=== PATIENT | female | born 1980 | race Caucasian/White ===

== ENCOUNTER 2019-12-10 13:50 | Emergency (ER) | payer OTHER ==
[~2019-12-10] VITALS: Ht 177.8 cm; Wt 54.4 kg
[2019-12-10] MEDS ORDERED: Acetaminophen 500mg (ES) tab ORAL ONE ×2 (14:00→14:19)
[2019-12-10] MEDS ORDERED: NORCO 5-325 TA1 EACH ORAL (14:06)
[2019-12-10] MEDS ORDERED: IBUPROFEN600 MG ORAL (14:07)
--- NOTE | 2019-12-10 14:07 | NUR ---
ED Nurse Note: Pt walked into ED stating that she's had TMJ for over 2 years without relief. Pt describes pain in bilateral jaw aas 07/20. Pt is refusing urine sample,Dr Manuel aware. Pt denies nausea or vomiting. Pt is alert and orientedx4, ambulatory.
--- NOTE | 2019-12-10 14:08 | Emergency Room Report ---
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 also additionally patient is being referred for surgery, she endorses sharp pain aggravated with eating alleviated with rest severity is severe lasting minutes patient presents for evaluation Allergies: Coded Allergies: No Known Allergies (Unverified , 12/10/19) Patient History Past Medical History: see triage record Last Menstrual Period: 2 weeks ago Reviewed Nursing Documentation: PMH: Agreed; PSxH: Agreed Nursing Documentation-PMH Past Medical History: No Stated History Review of Systems All Other Systems: negative except mentioned in HPI Physical Exam Vital Signs Date Time Temp Pulse Resp B/P (MAP) Pulse Ox O2 Delivery O2 Flow Rate FiO2 12/10/19 13:55 97.2 115 17 111/56 (74) 95 Room Air General Appearance: no apparent distress, alert Head: normocephalic, atraumatic ENT: hearing grossly normal, normal voice, other - Left jaw tender to palpation along the TMJ Neck: full range of motion, supple Respiratory: no respiratory distress, speaking full sentences Neurologic: alert, normal gait Psychiatric: anxious Skin: no rash Medical Decision Making Diagnostic Impression: Primary Impression: TMJ (temporomandibular joint disorder) ER Course 39-year-old female presents with left TMJ pain We will provide patient with pain medication patient deferred a test aware the risks and benefits Patient is also demanding strong pain medications patient counseled we will provide patient with a small prescription for pain control otherwise she has to follow-up with her PCP Cures report was run Disposition Home with precautions follow-up with PCP Last Vital Signs Date Time Temp Pulse Resp B/P (MAP) Pulse Ox O2 Delivery O2 Flow Rate FiO2 12/10/19 13:55 97.2 115 17 111/56 (74) 95 Room Air Disposition: HOME, SELF-CARE Condition: Stable Scripts Ibuprofen* (MOTRIN*) 600 Mg Tablet 600 MG ORAL Q8H PRN for For Pain, #30 TAB 0 Refills Prov: Rubin Manuel MD 12/10/19 Hydrocodone Bit/Acetaminophen 5-325* (NORCO 5-325*) 1 Each Tablet 1 TAB ORAL Q6H PRN for For Pain, #10 TAB 0 Refills Prov: Rubin Manuel MD 12/10/19 Referrals: [facility] Patient Instructions: Temporomandibular Joint Syndrome Additional Instructions: The patient was provided with discharge instructions, notified to follow-up with a primary care doctor and or specialist in the next 24-48 hours, and to return to the ED if they have worsening of their symptoms. Please note that this report is being documented using DRAGON technology. This can lead to erroneous entry secondary to incorrect interpretation by the dictating instrument. Rubin Manuel MD Dec 10, 2019 14:07
[2019-12-10 14:09] VITALS: BP 119/62
[2019-12-10] MEDS ORDERED: Ketorolac 30mg Inj IM ONE (14:15)
[2019-12-10] MEDS ORDERED: Ketorolac 30mg Inj ONE (14:19)
[2019-12-10 14:20] VITALS: BP 114/61
--- NOTE | 2019-12-10 14:20 | NUR ---
ER DISCHARGE NOTE: Patient is cleared to be discharged per ERMD, pt is aox4, on room air, with stable vital signs. pt was given dc and prescription instructions, pt was able to verbalize understanding, pt id band removed. pt is able to ambulate with steady gait. pt took all belongings.
== END 2019-12-10 14:20 | disposition home or self-care (01) ==
LOC: EMR 14:08
DX: M26.602 Left temporomandibular joint disorder, unspecified (principal)
CPT/HCPCS: 96372; J1885; Z7502; 99283